=== PATIENT | female | born 1975 | race Caucasian/White ===

== ENCOUNTER 2016-10-13 11:27 | Emergency (ER) | payer OTHER ==
--- NOTE | 2016-10-13 11:46 | ED Physician Documentation ---
Lower Extremity Injury - HISTORIAN Historian: patient - HPI Stated Complaint: Left Foot/Ankle Injury Chief Complaint: Lower Extremity Injury Onset: hours (18 hours) Where: home Context: fall Associated Symptoms:: numbness distally, swelling - ROS CONST: no problems - PAST HX Past History: other (hypothyroidsm, depression) Allergies/Adverse Reactions: Allergies Allergy/AdvReac Type Severity Reaction Status Date / Time No Known Allergies Allergy Unverified 10/13/16 11:53 Home Medications: Ambulatory Orders Medication Instructions Recorded DULoxetine HCL [Cymbalta] 30 mg PO DAILY 04/24/16 Docusate Sodium [Colace] 100 mg PO BID 04/24/16 Gabapentin [Neurontin] 900 mg PO TID 04/24/16 Hydroxyzine HCl [Atarax] 25 mg PO QID PRN 04/24/16 Lamotrigine [Lamictal] 100 mg PO BID 04/24/16 Levothyroxine Sodium [Synthroid] 150 mcg PO DAILY 04/24/16 Omeprazole [Prilosec] 20 mg PO DAILY 04/24/16 - SOCIAL HX Smoking History: non-smoker Alcohol Use: none Drug Use: none - FAMILY HX Family History: no significant history - VITAL SIGNS Vital Signs: Vital Signs Temp Pulse Resp BP Pulse Ox 98 F 114 H 20 114/104 98 10/13/16 11:30 10/13/16 11:30 10/13/16 11:30 10/13/16 11:30 10/13/16 11:30 - REVIEWED ASSESSMENTS Nursing Assessment Reviewed: Yes Vitals Reviewed: Yes ED Results Lab/Radiology - Radiology Radiology Impressions: distal fibular fracture, minimally displaced - Orders Orders: ED Orders Category Date Time Status ANKLE 3 VIEWS OR MORE [RAD] Stat Exams 10/13/16 Taken Lower Extremities Injury Phy - Physical Exam General Appearance: no acute distress Hips: bilateral hip: non-tender, normal inspection, normal range of motion, no evidence of injury Legs: bilateral: non-tender, normal inspection, normal range of motion, no evidence of injury Knees: bilateral: non-tender, normal inspection, normal range of motion, no evidence of injury Ankle: right: non-tender, normal inspection, left: ecchymosis (11x9 cm), limited range of motion, pain, soft tissue tenderness, swelling (lateral aspect) , N/A: deformity (none), joint effusion (none) Foot: right foot: non-tender, normal inspection, normal range of motion, no evidence of injury, limited range of motion, left foot: ecchymosis, pain, soft tissue tenderness, swelling Gait: limited by pain Neuro/Vascular/Tendon: no vascular compromise, motor nml, sensation nml Resp/CVS: chest non-tender, breath sounds nml, heart sounds nml, no resp. distress, lungs clear, reg. rate & rhythm Discharge Clincal Impression: Closed fracture of left distal fibula Qualifiers: Encounter type: initial encounter Fracture morphology: other fracture Qualified Code(s): S82.832A - Other fracture of upper and lower end of left fibula, initial encounter for closed fracture Referrals: Isreal Dukes MD [Primary Care Provider] - 2 Days Additional Instructions: Nonweight bearing on ankle until seen by orthopedics. Use crutches and keep walking boot on at all times. Call and make an appointment for further follow- up with orthopedics at [facility], . Keep your leg elevated with ice. Take Ibuprofen and or Tylenol as needed for pain. May supplement with tramadol. Home Medications: Ambulatory Orders DULoxetine HCL [Cymbalta] 30 mg PO DAILY 04/24/16 Docusate Sodium [Colace] 100 mg PO BID 04/24/16 Gabapentin [Neurontin] 900 mg PO TID 04/24/16 Hydroxyzine HCl [Atarax] 25 mg PO QID PRN 04/24/16 Lamotrigine [Lamictal] 100 mg PO BID 04/24/16 Levothyroxine Sodium [Synthroid] 150 mcg PO DAILY 04/24/16 Omeprazole [Prilosec] 20 mg PO DAILY 04/24/16 Condition: Stable Disposition: 01 HOME, SELF-CARE Decision to Admit: NO Date of Decison to Admit: 10/13/16 Decision Time: 12:24
[2016-10-13 13:03] VITALS: BP 160/58
--- NOTE | 2016-10-13 23:51 | Diagnostic Imaging Report ---
Report Submission Date: Oct 13, 2016 12:25:33 PM DESIGN TRANSFERRER Patient ~ Study Name: KIM PURCELL ~ Date: Oct 13, 2016 11:58:29 AM DESIGN TRANSFERRER ~ Modality Type: CR Gender: F ~ Description: LOWER EXTREMITY : 71 ~ Institution: [facility] Physician: JASPAL DALTON ~ ~ ~ ~ Left ankle - three views Clinical history: ~Injury. Findings: ~Examination left ankle in AP, lateral and oblique views demonstrates transverse fracture through the lateral malleolus. ~Fracture fragments are displaced by 1-2 mm. ~Fragments are anatomically aligned. ~The ankle mortise is anatomic. Impression: 1. ~Transverse fracture of the distal fibula. ~ Electronically signed on Oct 13, 2016 12:25:33 PM DESIGN TRANSFERRER by: Jarod CROW
== END 2016-10-13 12:52 | disposition home or self-care (01) ==
LOC: ED 11:27
DX: S82.832A Other fracture of upper and lower end of left fibula, initial encounter for closed fracture (principal); X58.XXXA Exposure to other specified factors, initial encounter; Y93.9 Activity, unspecified; Y99.9 Unspecified external cause status
CPT/HCPCS: 73610; 99283; L4360

== ENCOUNTER 2017-08-24 15:34 | Emergency (ER) | payer OTHER ==
--- NOTE | 2017-08-24 16:05 | ED Physician Documentation ---
Eye Problem - HISTORIAN Historian: patient - HPI Chief Complaint: Eye Problems Onset: days ago Associated symptoms: itching, redness Location: both eyes Severity: severe Apparent Injury: no Further Comments: yes (41 year old female patient presents with complaint of eye pain. Patient states she began having pain and drainage yesterday. States she has been rubbing her eyes frequently.) - ROS CONST: no problems MS/SKIN/LYMPH: denies: weakness, numbness, neck pain, back pain, ankle swelling , leg swelling, rash, other CVS/RESP: none EYES/ENT: none GI/: denies: nausea, vomiting NEURO: denies: headache - PAST HX Past History: other (anxiety, depression, constipation, GERD, hypothroidism) Allergies/Adverse Reactions: Allergies Allergy/AdvReac Type Severity Reaction Status Date / Time No Known Allergies Allergy Verified 08/24/17 16:18 Home Medications: Ambulatory Orders Medication Instructions Recorded DULoxetine HCL [Cymbalta] 30 mg PO DAILY 04/24/16 Docusate Sodium [Colace] 100 mg PO BID 04/24/16 Gabapentin [Neurontin] 900 mg PO TID 04/24/16 Hydroxyzine HCl [Atarax] 25 mg PO QID PRN 04/24/16 Lamotrigine [Lamictal] 100 mg PO BID 04/24/16 Levothyroxine Sodium [Synthroid] 150 mcg PO DAILY 04/24/16 Omeprazole [Prilosec] 20 mg PO DAILY 04/24/16 - SOCIAL HX Smoking History: cigarettes - FAMILY HX Family History: denies: none - VITAL SIGNS Vital Signs: Vital Signs Temp Pulse Resp BP Pulse Ox 160/58 10/13/16 12:52 - REVIEWED ASSESSMENTS Nursing Assessment Reviewed: Yes Vitals Reviewed: Yes ED Results Lab/Radiology - Orders Orders: ED Orders Category Date Time Status Eye Acuity 1T Care 08/24/17 15:58 Ordered Gentamicin Sulfate [Gentak] Med 08/24/17 16:01 Once 1 gm OP NOW ONE Eye Problem Physical Exam - Physical Exam General Appearance: mild distress, anxious Visual Acuity: see nursing assessment Eyelids: erythema (L), erythema (R), other (right eye with clear fluid bleb noted) Conjunctiva and Sclera: injected (R), injected (L), exudate (R) Corneas: nml inspection EOM: intact Pupils: equal Head/ENT: nml inspection, pharynx nml Skin: nml color, warm, skin intact Respiratory: no resp distress CVS: reg rate & rhythm Abdomen: non-tender Neuro/Psych: oriented x3, neuro intact, other (anxious) Discharge Clincal Impression: Acute conjunctivitis, bilateral Qualifiers: Acute conjunctivitis type: bacterial Qualified Code(s): H10.33 - Unspecified acute conjunctivitis, bilateral Referrals: Isreal Dukes MD [Primary Care Provider] - 2 Days Additional Instructions: Follow up with your primary care doctor on Saturday for re-evaluation. Do not rub eyes. Wear patch as needed for comfort. If your symptoms become worse, you need to be evaluated by ophthalmology. [facility] has ophthalmology wind commissioning technician at all times. Place .5 inch ribbon to each eye three times a day for 5 days. Condition: Stable Disposition: 01 HOME, SELF-CARE Decision to Admit: NO Decision Time: 16:06
[2017-08-24] MEDS: GENTAMICIN SULFATE 0.3% TUBE OP ONE (16:10)
[2017-08-24 16:23] VITALS: BP 106/82
== END 2017-08-24 16:22 | disposition home or self-care (01) ==
LOC: ED 15:34
DX: H10.33 Unspecified acute conjunctivitis, bilateral (principal)
CPT/HCPCS: 99283